=== PATIENT | female | born 1995 | race Caucasian/White ===

== ENCOUNTER 2018-08-23 19:47 | Emergency (ER) | payer OTHER ==
[2018-08-23 19:58] VITALS: BP 107/80
--- NOTE | 2018-08-23 20:17 | EDPHY ---
H & P Stated Complaint: touch livestock electrical fence, blackedout fell down, chest tightness Time Seen by Provider: 08/23/18 20:11 HPI/ROS: HPI: This is a 23-year-old female who presents with Chief Complaint: touch livestock electrical fence, blacked out, fell down, chest tightness Location: Right hand Quality: Injury Duration: 30 min prior to arrival Signs and Symptoms: no shortness of breath at rest, no shortness of breath on exertion, no cough, no chest pain, no palpitations, no lower extremity edema, no wheezing, no orthopnea, no paroxysmal nocturnal dyspnea, no fever, no injury/ trauma, no hemoptysis, no carpal pedal spasms Timing: Acute, resolved Severity: [id number] Context: Patient is generally healthy, presents accompanied by her significant other, with complaints of accidentally brushing up against electric fence when she was reaching through with her right hand to pet a horse. She reports that she touch the electric fence with the top of her hand and felt immediate pain. She then became lightheaded and "began to faint." This was witnessed by her significant other who reports that she did not have seizure activity or fall directly to the ground. He reports that she "became weak in her knees" and then slowly went down onto the ground. No tongue biting or urinary incontinence. Significant other ran to her and called her name and she responded immediately. She is behaving at baseline at this time. Modifying Factors: None Comment: ROS: A comprehensive 10 system review of systems is otherwise negative aside from elements mentioned in the history of present illness. MEDICAL/SURGICAL/SOCIAL HISTORY: Medical history: Attention deficit hyperactivity disorder. LMP 1-2 weeks ago. Surgical history: Denies Social history: Never smoked. Employed. Lives in [place]. CONSTITUTIONAL: Well-developed, well-nourished, adult white female, awake and alert, no obvious distress HEENT: Atraumatic and normocephalic, PERRL, EOMI. Nares patent; no rhinorrhea; no nasal mucosal edema. Tympanic membranes clear. Oropharynx clear, no exudate and moist pink mucosa. Airway patent. No lymphadenopathy. No meningismus. Cardiovascular: Normal S1/S2, regular rate, regular rhythm, without murmur rub or gallop. PULMONARY/CHEST: Symmetrical and nontender. Clear to auscultation bilaterally. Good air movement. No accessory muscle usage. ABDOMEN: Soft, nondistended, nontender, no rebound, no guarding, no peritoneal signs, no masses or organomegaly. No CVAT. EXTREMITIES: 2/2 pulses, strength 5/5, no deformities, no clubbing, no cyanosis or edema. NEUROLOGICAL: no focal neuro deficits. GCS 15. SKIN: Warm and dry, no erythema. no rash. Good capillary refill. Source: Patient Exam Limitations: No limitations - Personal History LMP (Females 10-55): 8-14 Days Ago Current Tetanus Diphtheria and Acellular Pertussis (TDAP): Yes - Medical/Surgical History Hx Asthma: No Hx Chronic Respiratory Disease: No Hx Diabetes: No Hx Cardiac Disease: No Hx Renal Disease: No Hx Cirrhosis: No Hx Alcoholism: No Hx HIV/AIDS: No Hx Splenectomy or Spleen Trauma: No Other PMH: ADHD - Social History Smoking Status: Never smoked Constitutional: Initial Vital Signs Temperature (C) 37.2 C 08/23/18 19:54 Heart Rate 90 08/23/18 19:54 Respiratory Rate 16 08/23/18 19:54 Blood Pressure 107/80 08/23/18 19:54 O2 Sat (%) 99 08/23/18 19:54 O2 Delivery Mode Room Air Allergies/Adverse Reactions: No Known Allergies Allergy (Unverified 08/23/18 19:53) Home Medications: Medication Instructions Recorded Adderall 10 MG (*) 08/23/18 Medical Decision Making ED Course/Re-evaluation: Vital signs reviewed and stable upon arrival. Placed on dental chair assembler. EKG shows normal sinus rhythm no acute ischemic changes, no arrhythmias, no heart block. No signs of neurovascular compromise/tenting of skin/compartment syndrome/ extremities and joints examined above and below area of concern and are neurovascularly intact/chemical christianson. Advised supportive care and given referral to establish primary care. This patient was seen under the supervision of my secondary supervising physician. I evaluated and cared for this patient with attending. Differential Diagnosis: Syncope including but not limited to vasovagal syncope, arrhythmia, dehydration , and blood loss. Departure - Departure Disposition: Home, Routine, Self-Care Clinical Impression: Electrocution and nonfatal effects of electric current Qualifiers: Encounter type: initial encounter Qualified Code(s): T75.4XXA - Electrocution, initial encounter Condition: Good Instructions: Electrical Christianson in Adults (ED) Additional Instructions: Consume a minimum of 8-10 glasses of water or electrolyte fluid replacement drinks that include Gatorade, Powerade, Pedialyte. Do not participate in any moderate or strenuous activity for 24 hour. Establish care with primary care provider. Referrals: ASHA GRANT [Other] - As per Instructions Argenis Guadalupe MD [Medical Doctor] - As per Instructions
--- NOTE | 2018-08-24 21:00 | CPEKG ---
Test Reason : OPEN Blood Pressure : / mmHG Vent. Rate : 087 BPM Atrial Rate : 087 BPM P-R Int : 177 ms QRS Dur : 073 ms QT Int : 372 ms P-R-T Axes : 055 061 028 degrees QTc Int : 448 ms Sinus rhythm Probable left atrial enlargement Confirmed by Mayo Aburto ([id number]) on 08/24/2018 9:00:14 PM Referred By: Mayo Aburto Confirmed By:Mayo Aburto
== END 2018-08-23 20:48 | disposition home or self-care (01) ==
DX: T75.4XXA Electrocution, initial encounter (principal); W86.8XXA Exposure to other electric current, initial encounter; Y92.73 Farm field as the place of occurrence of the external cause